=== PATIENT | male | born 1950 | race American Indian/Alaskan Native ===

== ENCOUNTER → 2025-04-06 | Outpatient (CLI) | payer OTHER, SELFPAY ==
--- NOTE | 2025-04-06 10:12 | XR_ITS ---
Examination: Lumbar spine, 5 views Technique: Lumbar spine AP, lateral, coned lateral lower lumbar spine, bilateral obliques 5 views Exam date and time: April 06, 2025, 1022 hours INDICATIONS: Low back pain beginning 3 days ago. FINDINGS: Diffuse advanced facet arthropathy Heavy abdominal aortic calcification. Moderate lumbar spondylosis. No acute lumbar fracture. Advanced degenerative disc disease L5-S1 IMPRESSION: Advanced degenerative disc disease L5-S1 with significant spinal stenosis
== END | disposition home or self-care (01) ==
LOC: SDIM 10:19 → CDIM 14:30
PROVIDERS: PCP Nurse Practitioner Family; Referring Provider Nurse Practitioner Family; Visit Provider Nurse Practitioner Family
DX: M51.370 Other intervertebral disc degeneration, lumbosacral region with discogenic back pain only (principal); M48.07 Spinal stenosis, lumbosacral region
CPT/HCPCS: 72110